=== PATIENT | male | born 1945 | race Caucasian/White ===

== ENCOUNTER → 2023-04-28 | Outpatient (CLI) | payer MEDICARE, BC ==
--- NOTE | 2023-04-30 11:18 | MR ---
EXAMINATION TYPE: MR Prostate wo/w con DATE OF EXAM: 04/28/2023 10:36 AM COMPARISON: None. CLINICAL INDICATION:Male, 77 years old with history of elevated PSA; Elevated PSA, history of biopsy. TECHNIQUE: Multi-planar, multi-sequence imaging of the pelvis is performed prior to and following the uncomplicated administration of bolus intravenous gadolinium. CONTRAST: 8 [facility] Interpretive Criteria: PI-RADS v2.1 SERUM PSA: 6.3 on 02/04/2023. 4.4 on 08/14/2022. 4.8 on 09/05/2020. SURGICAL PATHOLOGY: No data available. FINDINGS: Prostatic dimensions: 5.5 x 7.2 x 5.0 cm. Ellipsoid Volume:103.67 (PSA density=0.06 ng/mL/mL) CENTRAL GLAND (Central and Transition Zones/CZ+TZ): Multiple bilateral, heterogenous appearing hypertrophic stromal nodules, without suspicious lesion. N o T2 signal stromal nodules are seen bilaterally. Median lobe hypertrophy with protrusion into the ba se of the bladder. (PI-RADS 2) PERIPHERAL ZONE (PZ): [facility] in the rectum limits evaluation of the posterior peripheral zone on diffusion-weighted imagi ng. Bilateral linear, indistinct wedgelike areas of low ADC, and low T2 signal, No evidence of massli ke abnormality, or localized perfusional hypervascularity, to further suggest a focus of clinically s ignificant prostate cancer. (PI-RADS 2) SEMINAL VESICLES (SV): Symmetric and unremarkable. PERIPROSTATIC TISSUES: Unremarkable. LYMPH NODES: No enlarged pelvic lymph node. REMAINING PELVIS: Bladder wall is within normal limits given distention. Scattered bladder diverticula. No abnormal free or organized intrapelvic fluid collection. No pathologic bowel dilation or mural thickening. No hernia visualized OSSEOUS STRUCTURES: No suspicious osseous abnormality. IMPRESSION: 1. No specific features for high-risk prostate cancer. Maximum PI-RADS score: 2. 2. Substantial BPH, estimated gland volume 103.67 mL. 3. Bladder diverticula present bilaterally.
== END | disposition home or self-care (01) ==
LOC: RADMRIMAIN 09:18
PROVIDERS: ATTEND Urology
DX: N40.0 Benign prostatic hyperplasia without lower urinary tract symptoms (principal); N32.3 Diverticulum of bladder; R97.20 Elevated prostate specific antigen [PSA]
CPT/HCPCS: 72197; A9585